=== PATIENT | female | born 1975 | race Caucasian/White ===

== ENCOUNTER → 2016-12-28 | Outpatient (CLI) | payer MEDICAID ==
[~2016-12-28] MED LIST: ATARAX 25MG25 MG/TAB PO; BACTRIM DS 8001 TAB PO; CEPHALEXIN500 M1 PO; CLEOCIN HCL300 MG PO; GUAIFEN AC 10120 ML PO; IRON325 M1 PO; LORTAB 5/500 501 TAB PO; MOTRIN 800800 MG/TAB PO; MOTRIN800 MG PO; NAPROSYN500 MG PO; NO HOME MEDICATIONS; NORCO 325 MG-51 TAB PO; PERCOCET 325 MG1 TA2 PO; PREDNISONE20 MG PO; PRENATAL VITA1 UDTAB PO; PRENATAL1 TA1 PO; PRINIVIL10 MG PO; PROAIR HFA0.09 MG/AC IH; PROCARDIA XL 3030 MG PO; PROCARDIA XL 6060 MG PO; SENOKOT S 50 MG1 TAB PO; ULORIC80 MG PO; VICODIN 5/5001 UDTAB PO; ZITHROMAX 250M250 MG PO; ZYLOPRIM 300MG300 MG PO
== END ==
LOC: MC.RAD 09:00
DX: N63 Unspecified lump in breast (principal)

== ENCOUNTER → 2017-07-20 | Outpatient (CLI) | payer MEDICAID | LOC: COL.RAD 09:38 | DX: R80.8 Other proteinuria (principal); N18.3 Chronic kidney disease, stage 3 (moderate); N28.89 Other specified disorders of kidney and ureter ==

== ENCOUNTER 2019-03-04 09:31 | Emergency (ER) | payer MEDICAID ==
[~2019-03-04] VITALS: Ht 165.1 cm; Wt 85.0 kg
[2019-03-04 09:35] VITALS: TEMP 98.8
[2019-03-04 09:54] LABS: COLLECTION METHOD CLEAN CATCH
[2019-03-04 10:06] LABS: PH 5 (5-8); SQUAMOUS EPITHELIAL 0-2 /hpf; URINE APPEARANCE Clear; URINE BACTERIA None Seen /hpf; URINE BILIRUBIN Negative (NEGATIVE); URINE BLOOD Negative (NEGATIVE); URINE COLOR Straw; URINE GLUCOSE Negative (NEGATIVE); URINE KETONE Negative (NEGATIVE); URINE LEUKOCYTE ESTERASE Negative (NEGATIVE); URINE NITRATE Negative (NEGATIVE); URINE PROTEIN(semi-quant) 2+ (NEGATIVE); URINE RBC 0-2 /hpf; URINE UROBILINOGEN Negative (NEGATIVE)
[2019-03-04] MEDS ORDERED: COZAAR 50MG50 MG/TAB PO (10:12)
[2019-03-04 10:13] LABS: BASO % 0.3 % (0.0-2.0); EOS # 0.4 (0.0-0.7); EOS % 2.8 % (0-4.0); GRAN % 79.7 % (42.2-75.2); HEMOGLOBIN 10.8 g/dl (12.5-16.0); LYMPH # 1.6 (1.2-3.4); LYMPH % 10.7 % (20.0-51.0); MEAN CELL VOLUME 86 fl (80.0-100.0); MEAN CORPUSCULAR HEMOGLOBIN 27 pg (27.0-31.0); MEAN CORPUSCULAR HGB CONC 32 g/dl (33.0-37.0); MONO # 0.9 (0.1-0.6); MONO % 6.1 % (1.7-9.3); PLATELET COUNT 301 K/mm3 (130-400); RED BLOOD COUNT 3.94 M/mm3 (4.10-5.30); REDCELL DISTRIBUTION WIDTH-CV 13.6 % (11.5-14.5)
[2019-03-04 10:20] LABS: ALANINE AMINOTRANSFERASE < 6 U/L (9-52); ALBUMIN 4.3 gm/dL (3.5-5.0); ALKALINE PHOSPHATASE 122 U/L (50-136); ANION GAP 14 mmol/L (7-16); AST,SGOT 20 U/L (15-37); BILIRUBIN,TOTAL 0.3 mg/dL (0.0-1.0); BLOOD UREA NITROGEN 33 mg/dL (7-17); CALCIUM 9.8 mg/dL (8.4-10.2); CARBON DIOXIDE 19 mmol/L (22-30); CHLORIDE 109 mmol/L (98-107); GLUCOSE 122 mg/dL (74-106); POTASSIUM 3.8 mmol/L (3.4-5.0); SODIUM 142 mmol/L (137-145); URIC ACID 10.6 mg/dL (2.5-6.2)
[2019-03-04] MEDS ORDERED: NORCO 325 MG-51 TAB PO (11:10)
[2019-03-04] MEDS ORDERED: PREDNISONE20 MG PO (11:10)
[2019-03-04 11:23] VITALS: BP 149/101; PULSE 96
== END 2019-03-04 11:25 | disposition home or self-care (01) ==
LOC: COL.ER 09:31
PROVIDERS: Physician Assistant
DX: M10.9 Gout, unspecified (principal); I10 Essential (primary) hypertension

== ENCOUNTER → 2019-07-21 | Outpatient (CLI) | payer MEDICAID ==
[~2019-07-21] MED LIST changes: +COZAAR 50MG50 MG/TAB PO
== END ==
LOC: COL.VAS 12:07
DX: N18.4 Chronic kidney disease, stage 4 (severe) (principal)
CPT/HCPCS: G0365

== ENCOUNTER 2021-02-20 02:25 | Emergency (ER) | payer MEDICAID ==
[~2021-02-20] VITALS: Ht 165.1 cm; Wt 90.9 kg
[~2021-02-20 02:25] MED LIST changes: +DOXYCYCLINE 10100 MG PO; +ZITHROMAX Z PA250 MG PO
[2021-02-20 02:30] VITALS: TEMP 98.8
[2021-02-20] MEDS ORDERED: PREDNISONE20 MG PO (03:08)
[2021-02-20] MEDS ORDERED: NORCO 325 MG-51 TAB PO (03:08)
[2021-02-20 03:36] VITALS: BP 124/87; PULSE 97
== END 2021-02-20 03:36 | disposition home or self-care (01) ==
LOC: COL.ER 02:25
DX: I12.9 Hypertensive chronic kidney disease with stage 1 through stage 4 chronic kidney disease, or unspecified chronic kidney disease (principal); M10.9 Gout, unspecified; N18.9 Chronic kidney disease, unspecified; Z79.899 Other long term (current) drug therapy
CPT/HCPCS: J7512

== ENCOUNTER 2022-01-31 03:43 | Emergency (ER) | payer MEDICAID ==
[~2022-01-31] VITALS: Ht 165.1 cm; Wt 88.6 kg
[~2022-01-31 03:43] MED LIST changes: +PREDNISONE10 MG PO
[2022-01-31 03:47] VITALS: TEMP 98.4
[2022-01-31 04:12] LABS: BASO % 0.3 % (0.0-2.0); EOS # 0.5 K/mm3 (0.0-0.7); GRAN # 5.4 K/mm3 (1.4-6.5); LYMPH # 3.1 K/mm3 (1.2-3.4); LYMPH % 30.5 % (20.0-51.0); MEAN CELL VOLUME 82 fl (80.0-100.0); MEAN CORPUSCULAR HGB CONC 31 g/dl (33.0-37.0); MEAN PLATELET VOLUME 10.2 fl (7.4-10.4); MONO % 9.9 % (1.7-9.3); PLATELET COUNT 308 K/mm3 (130-400); RED BLOOD COUNT 3.45 M/mm3 (4.10-5.30); REDCELL DISTRIBUTION WIDTH-CV 15.6 % (11.5-14.5)
[2022-01-31 04:13] LABS: HEMATOCRIT 28.3 % (37.0-47.0); HEMOGLOBIN 8.9 g/dl (12.5-16.0); MEAN CORPUSCULAR HEMOGLOBIN 26 pg (27-31)
[2022-01-31 04:38] LABS: ALBUMIN 3.7 gm/dL (3.5-5.0); ALKALINE PHOSPHATASE 107 U/L (40-150); ANION GAP 17 mmol/L (7-16); AST,SGOT 9 U/L (5-34); BILIRUBIN,TOTAL 0.4 mg/dL (0.2-1.2); BLOOD UREA NITROGEN 57 mg/dL (7-19); C-REACTIVE PROTEIN 6.63 mg/dL (0.00-0.50); CARBON DIOXIDE 17 mmol/L (22-29); CHLORIDE 105 mmol/L (98-107); CREATININE, serum 5.06 mg/dL (0.57-1.11); GLUCOSE 113 mg/dL (70-99); MAGNESIUM 1.8 mg/dL (1.6-2.6); PHOSPHOROUS 6.5 mg/dL (2.3-4.7); POTASSIUM 3.1 mmol/L (3.5-4.5); SODIUM 139 mmol/L (136-145); TOTAL PROTEIN 7.3 gm/dL (6.2-8.1)
[2022-01-31 04:39] LABS: ALANINE AMINOTRANSFERASE < 6 U/L (0-55)
[2022-01-31] MEDS ORDERED: SODIUM BICARBO650 MG PO (05:17)
[2022-01-31] MEDS ORDERED: CALCITRIOL PO (05:17)
[2022-01-31 06:00] VITALS: BP 132/83; PULSE 82
== END 2022-01-31 06:15 | disposition home or self-care (01) ==
LOC: COL.ER 03:43
PROVIDERS: Emergency Medicine
DX: R20.0 Anesthesia of skin (principal); I12.9 Hypertensive chronic kidney disease with stage 1 through stage 4 chronic kidney disease, or unspecified chronic kidney disease; N18.9 Chronic kidney disease, unspecified; E83.51 Hypocalcemia; E87.6 Hypokalemia
CPT/HCPCS: J0610; J7030

== ENCOUNTER 2022-02-22 14:28 | Emergency (ER) | payer MEDICAID ==
[~2022-02-22] VITALS: Ht 165.1 cm; Wt 86.4 kg
[~2022-02-22 14:28] MED LIST changes: +CALCITRIOL PO; +SODIUM BICARBO650 MG PO
[2022-02-22 14:31] VITALS: TEMP 97.6
[2022-02-22] MEDS ORDERED: NAPROSYN500 MG PO (15:15)
[2022-02-22 15:26] VITALS: BP 121/76; PULSE 87
== END 2022-02-22 15:26 | disposition home or self-care (01) ==
LOC: COL.ER 14:28
DX: M79.671 Pain in right foot (principal)
CPT/HCPCS: J1885

== ENCOUNTER 2022-04-29 22:18 | Emergency (ER) | payer MEDICAID ==
[~2022-04-29] VITALS: Ht 165.1 cm; Wt 90.9 kg
[~2022-04-29 22:18] MED LIST changes: +LAMISIL250 M1
[2022-04-29 22:42] VITALS: BP 156/88; TEMP 98.2
[2022-04-30 00:04] VITALS: PULSE 85
== END 2022-04-29 23:55 | disposition home or self-care (01) ==
LOC: COL.ER 22:18
DX: M10.9 Gout, unspecified (principal); I12.9 Hypertensive chronic kidney disease with stage 1 through stage 4 chronic kidney disease, or unspecified chronic kidney disease; N18.4 Chronic kidney disease, stage 4 (severe)
CPT/HCPCS: J8540

== ENCOUNTER → 2023-11-19 | Outpatient (CLI) | payer MEDICAID ==
[~2023-11-19] MED LIST changes: +CIPRO 500MG TA500 MG PO; +COZAAR 25MG25 MG/TAB PO; +FLAGYL500 MG PO; +NORVASC2.5 MG PO; +TOPROL XL 25MG25 MG PO
[2023-11-19 14:08] LABS: TRICYCLIC ANTIDEPRESS URINE NEGATIVE (NEGATIVE)
== END ==
LOC: COL.LAB 13:17
PROVIDERS: Internal Medicine
DX: Z01.818 Encounter for other preprocedural examination (principal)

== ENCOUNTER → 2023-12-08 | Outpatient (CLI) | payer MEDICAID ==
[2023-12-08 21:58] LABS: HEPATITIS A ANTIBODY-IGM Negative (Negative)
[2023-12-09 04:31] LABS: HEPATITIS AB (HAV) IGG INDEX 3.92 Index (<=1.00)
== END ==
LOC: COL.LAB 09:17
PROVIDERS: Internal Medicine
DX: Z01.818 Encounter for other preprocedural examination (principal)